=== PATIENT | female | born 1995 | race Caucasian/White ===

== ENCOUNTER 2017-11-29 02:42 | Emergency (ER) | payer OTHER ==
[~2017-11-29] VITALS: Ht 152.4 cm; Wt 65.8 kg
[~2017-11-29 02:42] MED LIST: BIRTH CONTROL; HYDROCODON-ACE1 EAC7 PO; HYDROCODONE-AP1 EAC6 PO; IBUPROFEN 800800 M1; IBUPROFEN 800800 M1 PO; NOHOMEMEDICATIONS; NORCO 5-325 TA1 EACH PO; PENICILLIN VK250 MG PO; PENICILLIN VK500 M1 PO
[2017-11-29] MEDS ORDERED: PRENATA CHEWAB1 EACH PO (02:51)
[2017-11-29] MEDS ORDERED: TYLENOL EXTRA500 MG PO (02:52)
[2017-11-29] MEDS ORDERED: ACETAMINOPHEN-1 EAC1 PO (03:38)
[2017-11-29] MEDS ORDERED: PENICILLIN V P500 MG PO (03:38)
== END 2017-11-29 04:01 | disposition home or self-care (01) ==
LOC: ER 02:42
DX: O26.893 Other specified pregnancy related conditions, third trimester (principal); K02.9 Dental caries, unspecified; K04.7 Periapical abscess without sinus; F17.210 Nicotine dependence, cigarettes, uncomplicated; Z3A.35 35 weeks gestation of pregnancy; Z98.890 Other specified postprocedural states; Z88.6 Allergy status to analgesic agent

== ENCOUNTER 2018-01-10 02:26 | Emergency (ER) | payer OTHER ==
[~2018-01-10] VITALS: Ht 152.4 cm; Wt 54.4 kg
[~2018-01-10 02:26] MED LIST changes: +ACETAMINOPHEN-1 EAC1 PO; +PENICILLIN V P500 MG PO; +PRENATA CHEWAB1 EACH PO; +TYLENOL EXTRA500 MG PO
[2018-01-10] MEDS ORDERED: ORAL ANALGESIC9 GM MUCOUS MEM (02:39)
[2018-01-10] MEDS ORDERED: AMOXICILLIN500 M1 PO (02:39)
== END 2018-01-10 02:58 | disposition home or self-care (01) ==
LOC: ER 02:26
DX: K02.9 Dental caries, unspecified (principal); G40.909 Epilepsy, unspecified, not intractable, without status epilepticus; F17.210 Nicotine dependence, cigarettes, uncomplicated; Z88.8 Allergy status to other drugs, medicaments and biological substances